=== PATIENT | male | born 1990 | race African-American/Black ===

== ENCOUNTER 2017-05-04 20:57 | Emergency (ER) | payer BC, OTHER ==
[~2017-05-04] VITALS: Ht 182.9 cm; Wt 69.8 kg
[~2017-05-04 20:57] MED LIST: BACTRIM DS TAB1 EACH PO; BACTROBAN CREAM30 GM TOP; FLAGYL500 MG PO; FLEXERIL; NOHOMEMEDICATIONS; NORCO 5-325 TA1 EACH PO; PENICILLIN VK500 M1 PO
== END 2017-05-04 22:47 | disposition home or self-care (01) ==
LOC: ER 20:57
DX: S05.01XA Injury of conjunctiva and corneal abrasion without foreign body, right eye, initial encounter (principal); W34.09XA Accidental discharge from other specified firearms, initial encounter; Y93.89 Activity, other specified; Y92.89 Other specified places as the place of occurrence of the external cause; Y99.8 Other external cause status